=== PATIENT | female | born 1945 | race Caucasian/White ===

== ENCOUNTER 2017-04-21 05:59 | Observation (INO) | payer OTHER ==
[~2017-04-21] VITALS: Ht 157.5 cm; Wt 52.2 kg
[~2017-04-21 05:59] MED LIST: CIPRO500 MG PO; HYDROCODONE-AP1 EAC6 PO; LEXAPRO5 MG PO; XANAX 0.5 MG0.5 MG PO
[2017-04-21 06:01] VITALS: BP 182/90
[2017-04-21 06:22] LABS: ABSOLUTE LYMPHOCYTES 3.3 thou/uL (0.8-5.3); ABSOLUTE MONOCYTES 0.7 thou/uL (0.0-1.2); ABSOLUTE NEUTROPHILS 6.1 thou/uL (1.6-8.1); BASOPHILS 0.3 %; EOSINOPHILS 0.2 %; HEMATOCRIT 41.6 % (37.0-47.0); HEMOGLOBIN 13.9 gm/dL (12.0-15.0); LYMPHOCYTES 32.2 %; MCH 31.1 pg (26.0-34.0); MCHC 33.3 g/dL (28.0-37.0); MCV 93.3 fL (80.0-100.0); MONOCYTES 6.9 %; MPV 7.6 fl. (7.2-11.1); NUCLEATED RBCS 0 /100WBC; PLATELET COUNT* 198 thou/uL (150-400); POLYS 60.4 %; RBC 4.45 mil/uL (4.20-5.00); WBC 10.1 thou/uL (4.0-11.0)
[2017-04-21 06:22] LABS: URINE BILIRUBIN NEGATIVE (Negative); URINE BLOOD TRACE (Negative); URINE CLARITY CLEAR; URINE COLOR YELLOW; URINE GLUCOSE-RANDOM NEGATIVE (Negative); URINE KETONES NEGATIVE (Negative); URINE LEUKOCYTES-REFLEX NEGATIVE (Negative); URINE NITRITE-REFLEX NEGATIVE (Negative); URINE PROTEIN NEGATIVE (Negative); URINE UROBILINOGEN 0.2 E.U./dl (0.2-1.0)
[2017-04-21 06:26] LABS: CALCIUM 8.6 mg/dL (8.5-10.1); CREATININE 0.6 mg/dL (0.6-1.3); POTASSIUM 3.4 mmol/L (3.5-5.1)
[2017-04-21 06:30] LABS: ALBUMIN 3.8 g/dL (3.4-5.0); TOTAL BILIRUBIN 0.5 mg/dL (<0.1-1.0); TOTAL PROTEIN 6.7 g/dL (6.4-8.2)
[2017-04-21 09:24] LABS: AMP/METHAMP Negative (Negative); BARBITURATES Negative (Negative); BENZODIAZEPINES Negative (Negative); COCAINE Negative (Negative); METHADONE Negative (Negative); OPIATES Negative (Negative); PCP Negative (Negative); THC Negative (Negative)
[2017-04-21 10:49] VITALS: BP 168/72
[2017-04-21 11:24] VITALS: BP 168/72
[2017-04-21] MEDS ORDERED: NORCO 5-325 TA1 EACH PO (13:55)
[2017-04-21 16:03] VITALS: BP 160/71
[2017-04-21 20:00] VITALS: BP 176/84
[2017-04-22] VITALS: BP 157/64
[2017-04-22 03:00] VITALS: BP 151/72
[2017-04-22 04:52] LABS: ABSOLUTE BASOPHILS 0.1 thou/uL (0.0-0.2); ABSOLUTE EOSINOPHILS 0.1 thou/uL (0.0-0.7); ABSOLUTE LYMPHOCYTES 4.2 thou/uL (0.8-5.3); ABSOLUTE MONOCYTES 0.7 thou/uL (0.0-1.2); ABSOLUTE NEUTROPHILS 4.2 thou/uL (1.6-8.1); BASOPHILS 0.6 %; HEMATOCRIT 44.3 % (37.0-47.0); HEMOGLOBIN 14.9 gm/dL (12.0-15.0); LYMPHOCYTES 45.5 %; MCH 31.2 pg (26.0-34.0); MCHC 33.7 g/dL (28.0-37.0); MCV 92.7 fL (80.0-100.0); MONOCYTES 7.4 %; MPV 8.1 fl. (7.2-11.1); NUCLEATED RBCS 0 /100WBC; PLATELET COUNT* 189 thou/uL (150-400); POLYS 45.5 %; RBC 4.78 mil/uL (4.20-5.00); RDW-CV 13.3 % (10.5-14.5); WBC 9.2 thou/uL (4.0-11.0)
[2017-04-22 05:34] LABS: CALCIUM 9.6 mg/dL (8.5-10.1); CREATININE 0.7 mg/dL (0.6-1.3); POTASSIUM 3.8 mmol/L (3.5-5.1)
[2017-04-22 11:49] VITALS: BP 152/77
[2017-04-22 14:40] VITALS: BP 152/77
== END 2017-04-22 15:19 | disposition home or self-care (01) ==
LOC: M.ERS 05:59 → M.2W 06:53 → M.TBA-ER 06:53 → M.2W 11:31
PROVIDERS: Emergency Medicine; Internal Medicine; ADMIT Internal Medicine
DX: F19.939 Other psychoactive substance use, unspecified with withdrawal, unspecified (principal); R25.1 Tremor, unspecified; F41.9 Anxiety disorder, unspecified; F13.20 Sedative, hypnotic or anxiolytic dependence, uncomplicated; F17.210 Nicotine dependence, cigarettes, uncomplicated

== ENCOUNTER 2018-07-18 02:25 | Emergency (ER) | payer OTHER ==
[~2018-07-18] VITALS: Ht 154.9 cm; Wt 54.4 kg
[~2018-07-18 02:25] MED LIST changes: +NORCO 5-325 TA1 EACH PO
[2018-07-18] MEDS ORDERED: CYMBALTA30 MG PO (02:30)
[2018-07-18 03:49] LABS: URINE BILIRUBIN NEGATIVE (Negative); URINE BLOOD TRACE (Negative); URINE CLARITY CLEAR; URINE COLOR YELLOW; URINE GLUCOSE-RANDOM NEGATIVE (Negative); URINE KETONES 1+ (Negative); URINE LEUKOCYTES-REFLEX NEGATIVE (Negative); URINE NITRITE-REFLEX NEGATIVE (Negative); URINE PROTEIN NEGATIVE (Negative); URINE UROBILINOGEN 0.2 E.U./dl (0.2-1.0)
[2018-07-18 04:02] LABS: ABSOLUTE BASOPHILS 0.1 thou/uL (0.0-0.2); ABSOLUTE LYMPHOCYTES 2.9 thou/uL (0.8-5.3); ABSOLUTE MONOCYTES 0.6 thou/uL (0.0-1.2); BASOPHILS 0.8 %; EOSINOPHILS 0.5 %; HEMATOCRIT 41.5 % (37.0-47.0); HEMOGLOBIN 14.3 gm/dL (12.0-15.0); MCH 31.1 pg (26.0-34.0); MCHC 34.5 g/dL (28.0-37.0); MCV 90.4 fL (80.0-100.0); MONOCYTES 6.6 %; MPV 7.1 fl. (7.2-11.1); NUCLEATED RBCS 0 /100WBC; PLATELET COUNT* 267 thou/uL (150-400); POLYS 58.1 %; RBC 4.59 mil/uL (4.20-5.00); RDW-CV 13.6 % (10.5-14.5); WBC 8.6 thou/uL (4.0-11.0)
[2018-07-18 04:20] LABS: ANION GAP 13 mmol/L (7-16); BUN 18 mg/dL (7-18); CALCIUM 9.7 mg/dL (8.5-10.1); CHLORIDE 101 mmol/L (98-107); CO2 25 mmol/L (21-32); CREATININE 0.7 mg/dL (0.6-1.3); GLUCOSE 128 mg/dL (70-99); POTASSIUM 4.1 mmol/L (3.5-5.1); SODIUM 139 mmol/L (136-145); TROPONIN-I LEVEL <0.06 ng/mL (<0.06)
[2018-07-18 04:23] LABS: ALBUMIN 4.2 g/dL (3.4-5.0); ALKALINE PHOSPHATASE 87 U/L (46-116); SGOT 12 U/L (15-37); SGPT 16 U/L (30-65); TOTAL BILIRUBIN 0.4 mg/dL (<0.1-1.0); TOTAL PROTEIN 7.6 g/dL (6.4-8.2)
[2018-07-18] MEDS ORDERED: ATIVAN1 MG PO (05:03)
[2018-07-18 05:55] VITALS: BP 141/66
--- NOTE | 2018-07-18 11:58 | EKG ---
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
== END 2018-07-18 06:01 | disposition home or self-care (01) ==
LOC: M.ERS 02:25
PROVIDERS: Emergency Medicine
DX: F13.230 Sedative, hypnotic or anxiolytic dependence with withdrawal, uncomplicated (principal); Z90.710 Acquired absence of both cervix and uterus; Z90.5 Acquired absence of kidney

== ENCOUNTER 2020-03-17 01:13 | Emergency (ER) | payer OTHER ==
[~2020-03-17] VITALS: Ht 154.9 cm; Wt 46.7 kg
[~2020-03-17 01:13] MED LIST changes: +ATIVAN1 MG PO; +CYMBALTA30 MG PO
[2020-03-17] MEDS ORDERED: METFORMIN HCL500 M3 PO (01:21)
[2020-03-17 01:38] LABS: HEMATOCRIT 39.6 % (37.0-47.0); HEMOGLOBIN 13.2 gm/dL (12.0-15.0); MCH 29.4 pg (26.0-34.0); MCHC 33.3 g/dL (28.0-37.0); MCV 88.4 fL (80.0-100.0); MPV 7.3 fl. (7.2-11.1); RBC 4.48 mil/uL (4.20-5.00); RDW-CV 14.5 % (10.5-14.5); WBC 8.6 thou/uL (4.0-11.0)
[2020-03-17 01:45] LABS: CREATININE 0.9 mg/dL (0.6-1.3); POTASSIUM 3.9 mmol/L (3.5-5.1)
[2020-03-17 01:50] LABS: ALBUMIN 4.1 g/dL (3.4-5.0); TOTAL BILIRUBIN 0.3 mg/dL (<0.1-1.0); TOTAL PROTEIN 7.6 g/dL (6.4-8.2)
[2020-03-17 02:32] LABS: URINE BILIRUBIN NEGATIVE (Negative); URINE BLOOD TRACE (Negative); URINE CLARITY CLEAR; URINE COLOR YELLOW; URINE GLUCOSE-RANDOM NEGATIVE (Negative); URINE KETONES NEGATIVE (Negative); URINE LEUKOCYTES-REFLEX NEGATIVE (Negative); URINE NITRITE-REFLEX NEGATIVE (Negative); URINE PROTEIN NEGATIVE (Negative); URINE SPECIFIC GRAVITY 1.025 (1.005-1.030); URINE UROBILINOGEN 0.2 E.U./dl (0.2-1.0)
[2020-03-17 02:40] LABS: AMP/METHAMP Negative (Negative); BARBITURATES Negative (Negative); BENZODIAZEPINES Negative (Negative); COCAINE Negative (Negative); METHADONE Negative (Negative); OPIATES POSITIVE (Negative); PCP Negative (Negative); THC Negative (Negative)
[2020-03-17 03:25] VITALS: BP 168/79
--- NOTE | 2020-03-17 18:01 | EKG ---
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1945 Requested By: Anabella Alexis Order Number: [id number] MD: Gigi Stark Measurements Intervals [place] Rate: 101 P: 69 [place]: 127 QRS: 5 QRSD: 78 T: 5 QT: 311 QTc: 404 Interpretive Statements Sinus tachycardia Compared to ECG 07/18/2018 03:34:10 Sinus rhythm no longer present Electronically Signed On 03-17-2020 18:00:56 [employer]KER by Gigi Stark [email or web address] <ELECTRONICALLY SIGNED> By: Gigi Stark MD, FACC 03/17/20 1800 0115 0115 Gigi Stark MD, [facility] /EPI
== END 2020-03-17 03:25 | disposition home or self-care (01) ==
LOC: M.ERS 01:13
PROVIDERS: Personal Emergency Response Attendant
DX: G47.00 Insomnia, unspecified (principal); I16.0 Hypertensive urgency; F13.239 Sedative, hypnotic or anxiolytic dependence with withdrawal, unspecified; Z90.710 Acquired absence of both cervix and uterus; Z79.899 Other long term (current) drug therapy

== ENCOUNTER 2020-05-15 03:02 | Emergency (ER) | payer OTHER ==
[~2020-05-15] VITALS: Ht 154.9 cm; Wt 47.6 kg
[~2020-05-15 03:02] MED LIST changes: +METFORMIN HCL500 M3 PO
[2020-05-15 03:22] LABS: URINE BILIRUBIN NEGATIVE (Negative); URINE BLOOD TRACE (Negative); URINE CLARITY CLEAR; URINE COLOR YELLOW; URINE GLUCOSE-RANDOM NEGATIVE (Negative); URINE KETONES NEGATIVE (Negative); URINE LEUKOCYTES-REFLEX NEGATIVE (Negative); URINE NITRITE-REFLEX NEGATIVE (Negative); URINE PROTEIN NEGATIVE (Negative); URINE UROBILINOGEN 0.2 E.U./dl (0.2-1.0)
[2020-05-15] MEDS ORDERED: XANAX 0.5 MG0.5 M1 PO (03:24)
[2020-05-15] MEDS ORDERED: BACLOFEN5 MG PO (03:25)
[2020-05-15 03:32] LABS: ABSOLUTE BASOPHILS 0.1 thou/uL (0.0-0.2); ABSOLUTE LYMPHOCYTES 4.1 thou/uL (0.8-5.3); ABSOLUTE MONOCYTES 0.8 thou/uL (0.0-1.2); ABSOLUTE NEUTROPHILS 5.3 thou/uL (1.6-8.1); BASOPHILS 0.9 %; EOSINOPHILS 0.4 %; HEMATOCRIT 39.5 % (37.0-47.0); LYMPHOCYTES 39.8 %; MCH 28.1 pg (26.0-34.0); MCHC 32.8 g/dL (28.0-37.0); MCV 85.7 fL (80.0-100.0); MONOCYTES 7.7 %; MPV 7.5 fl. (7.2-11.1); NUCLEATED RBCS 0 /100WBC; PLATELET COUNT* 267 thou/uL (150-400); POLYS 51.2 %; RBC 4.61 mil/uL (4.20-5.00); RDW-CV 13.8 % (10.5-14.5); WBC 10.4 thou/uL (4.0-11.0)
[2020-05-15 03:44] LABS: PROTIME 10.9 Seconds (9.20-11.50)
[2020-05-15 03:45] LABS: CALCIUM 9.7 mg/dL (8.5-10.1); CREATININE 0.9 mg/dL (0.6-1.3)
[2020-05-15 03:56] LABS: ALBUMIN 4.3 g/dL (3.4-5.0); MAGNESIUM 2.1 mg/dL (1.8-2.4); TOTAL BILIRUBIN 0.3 mg/dL (<0.1-1.0); TOTAL PROTEIN 7.4 g/dL (6.4-8.2)
[2020-05-15] MEDS ORDERED: HYDROXYZINE HCL25 M2 PO ×3 (04:22→04:42)
[2020-05-15 05:04] VITALS: BP 143/92
--- NOTE | 2020-05-15 10:35 | EKG ---
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1945 Requested By: Angelita Marquez Order Number: [id number] MD: Chris Aden Measurements Intervals [place] Rate: 106 P: 81 [place]: 145 QRS: 26 QRSD: 80 T: 37 QT: 308 QTc: 409 Interpretive Statements Sinus tachycardia nonspecific t wave changes CARLOS, consider biatrial enlargement Compared to ECG 03/17/2020 01:15:25 No significant changes Electronically Signed On 05-15-2020 10:35:37 [employer]ES [employer]OC[employer] by Chris Aden [email or web address] <ELECTRONICALLY SIGNED> By: Chris Aden MD, [facility] 05/15/20 1035 1 1 Chris Aden MD, [facility] /EPI
== END 2020-05-15 05:04 | disposition home or self-care (01) ==
LOC: M.ERS 03:02
PROVIDERS: Emergency Medicine
DX: S00.83XA Contusion of other part of head, initial encounter (principal); R55 Syncope and collapse; F13.90 Sedative, hypnotic, or anxiolytic use, unspecified, uncomplicated; Z90.710 Acquired absence of both cervix and uterus; W18.39XA Other fall on same level, initial encounter; Y93.89 Activity, other specified; Y92.89 Other specified places as the place of occurrence of the external cause; Y99.8 Other external cause status

== ENCOUNTER 2021-03-03 16:41 | Emergency (ER) | payer OTHER ==
[~2021-03-03] VITALS: Ht 154.9 cm; Wt 43.1 kg
[~2021-03-03 16:41] MED LIST changes: +BACLOFEN5 MG PO; +HYDROXYZINE HCL25 M2 PO; +XANAX 0.5 MG0.5 M1 PO
[2021-03-03] MEDS ORDERED: CELEXA 10 MG TA10 M1 PO (16:57)
[2021-03-03] MEDS ORDERED: NORCO 10-325 T1 EACH PO (16:57)
[2021-03-03] MEDS ORDERED: MIRTAZAPINE7.5 MG PO (16:58)
[2021-03-03] MEDS ORDERED: ELIQUIS5 MG PO ×2 (16:58)
[2021-03-03 17:35] LABS: ABSOLUTE BASOPHILS 0.1 thou/uL (0.0-0.2); ABSOLUTE EOSINOPHILS 0.1 thou/uL (0.0-0.7); ABSOLUTE LYMPHOCYTES 1.8 thou/uL (0.8-5.3); ABSOLUTE MONOCYTES 0.5 thou/uL (0.0-1.2); ABSOLUTE NEUTROPHILS 2.8 thou/uL (1.6-8.1); BASOPHILS 1.1 %; EOSINOPHILS 1.8 %; HEMATOCRIT 32.6 % (37.0-47.0); HEMOGLOBIN 10.1 gm/dL (12.0-15.0); LYMPHOCYTES 34.8 %; MCH 24.7 pg (26.0-34.0); MCHC 31.1 g/dL (28.0-37.0); MCV 79.6 fL (80.0-100.0); MONOCYTES 9.9 %; MPV 7.5 fl. (7.2-11.1); NUCLEATED RBCS 0 /100WBC; PLATELET COUNT* 224 thou/uL (150-400); POLYS 52.4 %; RDW-CV 27.4 % (10.5-14.5); WBC 5.3 thou/uL (4.0-11.0)
[2021-03-03 17:47] LABS: CALCIUM 9.6 mg/dL (8.5-10.1); CREATININE 0.7 mg/dL (0.6-1.3); POTASSIUM 4.9 mmol/L (3.5-5.1)
[2021-03-03 17:52] LABS: ALBUMIN 3.4 g/dL (3.4-5.0); TOTAL BILIRUBIN 0.4 mg/dL (<0.1-1.0); TOTAL PROTEIN 7.2 g/dL (6.4-8.2)
[2021-03-03 18:14] LABS: URINE BILIRUBIN NEGATIVE (Negative); URINE BLOOD NEGATIVE (Negative); URINE CLARITY CLEAR; URINE COLOR YELLOW; URINE GLUCOSE-RANDOM NEGATIVE (Negative); URINE KETONES NEGATIVE (Negative); URINE LEUKOCYTES-REFLEX NEGATIVE (Negative); URINE NITRITE-REFLEX NEGATIVE (Negative); URINE PROTEIN NEGATIVE (Negative); URINE SPECIFIC GRAVITY 1.015 (1.005-1.030); URINE UROBILINOGEN 0.2 E.U./dl (0.2-1.0)
[2021-03-03 18:46] VITALS: BP 136/82
[2021-03-03 18:51] LABS: ANISOCYTOSIS 1+; HYPOCHROMASIA 1+; PLATELET ESTIMATE ADEQUATE; POIKILOCYTOSIS 1+
--- NOTE | 2021-03-04 11:09 | EKG ---
[place] [address] ELECTROCARDIOGRAM REPORT Name: OSWALD COULTER Room: [facility]#: [id number] Admission: 03/03/21 Attend Phys: Discharge: 03/03/21 Date of : 49 Date of Service: 03/03/21 1720 Report #: [id number] THIS REPORT FOR: //name// [facility] ED Test Date: 2021-03-03 Test Time: 17:20:20 Pat Name: OSWALD COULTER Department: Room: Gender: F Supervisor Histology: TJJose : 1945 Requested By: Lashell Silva Order Number: [id number] MD: Mendoza Spears Measurements Intervals [place] Rate: 83 P: 62 [place]: 140 QRS: 24 QRSD: 101 T: 37 QT: 375 QTc: 441 Interpretive Statements Sinus rhythm Probable left atrial enlargement Low voltage, precordial leads Compared to ECG 05/15/2020 03:12:40 Low QRS voltage now present Sinus tachycardia no longer present T-wave abnormality no longer present Electronically Signed On 03-04-2021 11:09:16 APPLICATIONS ANALYST by Mendoza Spears [email or web address] <ELECTRONICALLY SIGNED> By: Mia Spears MD, FACC 03/04/21 1109 19 19 Mia Spears MD, FAC /EPI
== END 2021-03-03 18:47 | disposition home or self-care (01) ==
LOC: M.ERS 16:41
PROVIDERS: Physician Assistant
DX: M25.532 Pain in left wrist (principal); E11.9 Type 2 diabetes mellitus without complications; F17.210 Nicotine dependence, cigarettes, uncomplicated; Z86.718 Personal history of other venous thrombosis and embolism; Z90.711 Acquired absence of uterus with remaining cervical stump; Z98.890 Other specified postprocedural states; Z85.05 Personal history of malignant neoplasm of liver; Z79.899 Other long term (current) drug therapy; W10.8XXA Fall (on) (from) other stairs and steps, initial encounter; Y93.89 Activity, other specified; Y92.89 Other specified places as the place of occurrence of the external cause; Y99.8 Other external cause status